=== PATIENT | male | born 1950 | race Caucasian/White ===

== ENCOUNTER → 2019-06-23 | Outpatient (CLI) | payer MEDICARE ==
[~2019-06-23] MED LIST: REGADENOSON 0.4 MG/5 ML DISP.SYRIN. IV ONE
--- NOTE | 2019-06-23 10:14 | PCVCIMAG ---
APPROVED REPORT Study performed: 06/23/2019 08:31:52 EXAM: Comprehensive 2D, Doppler, and color-flow Echocardiogram Patient Location: Echo lab Status: routine BSA: 1.68 HR: 62 bpmBP: 154/72 mmHg Rhythm: NSR Risk Factors: Cardiac Risk Factors: Smoking, HTN Indications Murmur CAD Chest Pain 2D Dimensions IVSd: 10.80 (7-11mm)LVOT Diam: 22.37 (18-24mm) LVDd: 37.46 mm PWd: 10.28 (7-11mm)Ascending Ao: 34.35 (22-36mm) LVDs: 26.82 (25-40mm) Left Atrium: 34.32 (27-40mm) Aortic Root: 31.72 mm LV Single Plane 4CH: 66.83 % LV Single Plane 2CH: 60.70 % Biplane EF: 63.9 % Volumes Left Atrial Volume (Systole) Single Plane 4CH: 44.20 mLSingle Plane 2CH: 42.24 mL LA ESV Index: 27.00 mL/m2 Aortic Valve AoV Peak Galen.: 2.71 m/s AO Peak Gr.: 29.31 mmHgLVOT Max P.67 mmHg AO Mean Gr.: 16.73 mmHgLVOT Mean P.81 mmHg AO V2 Mean: 1.96 m/sLVOT Max V: 1.19 m/s AO V2 VTI: 65.91 cmLVOT Mean V: 0.78 m/s GEETA (VTI): 1.63 [id number] V1 VTI: 27.34 cm GEETA Vmax: 1.73 cm2 AI Vmax: 4.76 m/sSV (LVOT): 107.42 mL AI Mcdonough: 2.73 m/s2 AI PHT: 506.28 ms Mitral Valve E/A Ratio: 0.8 MV Decel. Time: 251.42 ms MV E Max Galen.: 0.66 m/s MV A Galen.: 0.82 m/s IVRT: 128.03 ms Pulmonary Valve PV Peak Galen.: 0.91 m/sPV Peak Gr.: 3.29 mmHg Pulmonary Vein P Vein S: 0.30 m/sP Vein A: 0.31 m/s P Vein D: 0.47 m/sP Vein A Dur.: 124.6 msec P Vein S/D Ratio: 0.64 Tricuspid Valve TR Peak Galen.: 2.69 m/s TR Peak Gr.: 29.03 mmHg Left Ventricle The left ventricle is normal size. There is normal LV segmental wall motion. There is normal left ventricular wall thickness. Left ventricular systolic function is normal. The left ventricular ejection fraction is within the normal range. LVEF is 60-65%. The left ventricular diastolic function is normal. Right Ventricle The right ventricle is normal size. The right ventricular systolic function is normal. Atria The left atrium size is normal. The right atrium size is normal. Aortic Valve The aortic valve is moderately to severely calcified. Mild aortic regurgitation. There is mild valvular aortic stenosis. Calculated aortic valve area is 1.7 cm2 with maximum pressure gradient of 29 mmHg and mean pressure gradient of 17 mmHg. Mitral Valve The mitral valve is normal in structure. Mild mitral regurgitation. No evidence of mitral valve stenosis. Tricuspid Valve The tricuspid valve is normal in structure. Mild tricuspid regurgitation with PAP of 36 mmHg. Pulmonic Valve The pulmonary valve is normal in structure. There is no pulmonic valvular regurgitation. Great Vessels The aortic root is normal in size. IVC is normal in size and collapses >50% with inspiration. Pericardium There is no pericardial effusion. There is no pleural effusion. <Conclusion> The left ventricle is normal size. LVEF is 60-65%. The aortic valve is moderately to severely calcified. Mild aortic regurgitation. There is mild valvular aortic stenosis. Calculated aortic valve area is 1.7 cm2 with maximum pressure gradient of 29 mmHg and mean pressure gradient of 17 mmHg. The mitral valve is normal in structure. Mild mitral regurgitation. The tricuspid valve is normal in structure. Mild tricuspid regurgitation with PAP of 36 mmHg. The pulmonary valve is normal in structure. There is no pericardial effusion.
--- NOTE | 2019-06-24 13:05 | PCVCIMAG ---
APPROVED REPORT Imaging Protocol: Rest Tc-99m/Stress Tc-99m 1 day Study performed: 06/23/2019 09:23:51 Indication: CAD, Chest pain Patient Location: Out-Patient Stress Nurse: Lian Shukla RN, Tamara Kat RN SC Tech:Sharron Nick [facility] Ht: 5 ft 7 in Wt: 130 lbs BSA: 1.68 m2 HR: 63 bpm BP: 164/69 mmHg BMI: 20.35 Rhythm: Sinus Rhythm with PVC's Medical History Medical History: CAD, CVD, Current Smoker, HTN Medications: Atorvastatin, Plavix, Pepcid, Metoprolol, Micardis Allergies: Lincomycin Cardiac Risk Factors: Age Pretest Chest Pain Characteristics: No chest pain Exercise History: Sedentary Physical Disabilities: Knees Meds Held (24 hrs): Metoprolol Resting Data Rest SPECT myocardial perfusion imaging was performed in supine position 45 minutes following the intravenous injection of 10.6 mCi of Tc-99m Sestamibi. Time of rest injection: 914 Date: 0 Administration Route: IV Administration Site: Right AC Pharmacologic Stress Pharmacologic stress test was performed by injecting Regadenoson 0.4 mg IV push over 10-15 seconds immediately followed by the intravenous injection of 35.6 mCi of Tc-99m Sestamibi. Time of stress injection: 1030 Date: 06/23/2019 Administration Route: IV Administration Site: Right Hand Gated Stress SPECT was performed 45 minutes after stress injection. The images were gated to evaluate regional wall motion and calculate left ventricular ejection fraction. Stress Test Details Stress Test: Pharmacologic stress testing performed using 0.4 mg of regadenoson per 5 mL given IV over 10 seconds. Reason for pharmacologic stress test: physical limitation, knee issues. HRMax Heart Rate (APMHR): 150 bpm Resting HR: 63 bpmTarget HR (85% APMHR): 127 bpm Max HR Achieved: 85 bpm % of APMHR: 56 Recovery HR: 80 bpm BP Resting BP: 164/69 mmHg Max BP: 186/79 mmHg Recovery BP: 152/67 mmHg ECG Resting ECG: Sinus Rhythm with PVC's Stress ECG: Sinus Tachycardia Arrhythmia: PAC's, PVC's Recovery ECG: Sinus Rhythm Clinical Reason for Termination: Completed protocol Stress Symptoms: Dyspnea, Headache Symptoms resolved with caffeine. Stress ECG Conclusion 1. Adequate response intravenous Lexiscan 2. Inadequate heart rate for ECG diagnosis Study Data Post stress, the left ventricular ejection was 74%.. SSS: 0 SRS: 0 SDS: 0 TID = 0.95. Perfusion There is a medium area of moderately reduced uptake in the mid and apical segment of the inferior wall which is seen on the stress images as well as the resting images. This area thickens and moves normally and is most consistent with attenuation artifact. Wall Motion Normal left ventricular wall motion. Nuclear Conclusion ECG Findings: non-diagnostic Clinical Findings: negative for ischemia Nuclear Findings: negative for ischemia Exercise Capacity: not assessed Left Ventricular Function: normal 1. Low risk study 2. Post exercise left ventricular ejection fraction 74% without wall motion abnormalities <Conclusion> 1. Adequate response intravenous Lexiscan 2. Inadequate heart rate for ECG diagnosis
== END | disposition home or self-care (01) ==
LOC: PCVCIMAG 09:13
PROVIDERS: ATTEND Internal Medicine
DX: I08.3 Combined rheumatic disorders of mitral, aortic and tricuspid valves (principal); I25.10 Atherosclerotic heart disease of native coronary artery without angina pectoris; I10 Essential (primary) hypertension; F17.200 Nicotine dependence, unspecified, uncomplicated; Z88.1 Allergy status to other antibiotic agents
CPT/HCPCS: 78452; 93017; 93306; A9500; J2785

== ENCOUNTER → 2019-07-14 | Outpatient (CLI) | payer MEDICARE | END | disposition home or self-care (01) | LOC: PCVCCLINIC 12:57 | PROVIDERS: ATTEND Internal Medicine | DX: I35.0 Nonrheumatic aortic (valve) stenosis (principal); I10 Essential (primary) hypertension; F17.200 Nicotine dependence, unspecified, uncomplicated; Z88.1 Allergy status to other antibiotic agents | CPT/HCPCS: G0463 ==